=== PATIENT | female | born 1980 | race Caucasian/White ===

== ENCOUNTER 2016-10-18 11:52 | Emergency (ER) | payer OTHER ==
[~2016-10-18] VITALS: Ht 154.9 cm; Wt 54.6 kg
[~2016-10-18 11:52] MED LIST: ACET-1256 PO; CRFL PO; HYDR-3126 PO; LORA-741 PO; PANT40TA PO; PROM25TA9 PO
[2016-10-18 11:57] VITALS: TEMP 37; Ht 154.9 cm; Wt 54.6 kg
[2016-10-18] MEDS ORDERED: FERR1TAB13 PO (12:20)
[2016-10-18] MEDS ORDERED: ONDANSETRON INJ 2 MG/ML 2 ML VIAL IV STA (12:39)
[2016-10-18] MEDS ORDERED: SODIUM CHLORIDE 0.9% 1000ML 1,000 ML IV ONE (12:45)
[2016-10-18] MEDS ORDERED: HYDROmorphone INJ 0.5 MG/0.5 ML SYR IV PRN (12:45)
--- NOTE | 2016-10-18 12:56 | EMERGENCY ROOM VISIT NOTE ---
History Report prepared by Peter: Dylan Briggs Under the Supervision of: Dr. Andi Mitchell M.D. First contact with patient: 12:34 Chief Complaint: URINARY SYMPTOMS Stated Complaint: UTI,ABDOMINAL PAIN,NAUSE Nursing Triage Summary: Pt presents with concerns for UTI. Reports pelvic pain and upper abd pain. Pt states, "I have to poop to push. I've had gastric bypass in the past. I constantly feel like I have to pee. I am taking Uristat. I have a fishy smell and I haven't been sexually active in almost two years. I have pain in my back. " Pt also reports itchy rash to right upper arm. History of Present Illness The patient is a 36 year old female who presents to the Emergency Room with complaints of persistent urinary symptoms that started a few days ago. She says she has had difficulty urinating, and she has a pain in her upper abdomen that is radiating to her back around both her kidneys. She states that she recently started taking Miralax. The patient also complains of chills, fatigue, dehydration, nausea, and pelvic pain. The patient notes that there is a fishy smell coming from her vagina, but she says that she has not been sexually active in 2 years. The patient got and has been taking UTI Uristat for the pain the last few days. The patient did not take her nausea medication this morning because she has had problems holding food down. She additionally complains of an itchy rash on her right upper arm as well as on her left elbow. The patient says that she had a rash like this a year ago, and was told it was a bug bite. The patient has hypoglycemia. The patient had gastric bypass surgery 5 years ago , and lost half her weight. She is seeing a weight business management professor in 2 days. The patient was told that she may need to have a PICC line placed in her due to not getting enough nutrients. Source of History: patient Onset: A few days ago Position: other (global - urinary symptoms) Quality: other (difficulty urinating) Timing: other (persistent) Associated Symptoms: + abdominal pain, + back pain, + fatigue, + nausea, + rash, + vomiting Note: Associated symptoms: Dehydration, pelvic pain, fishy smell coming from vagina. Review of Systems All systems have been listed, reviewed, and are negative other than those previously mentioned. Please see Additional Medical History Sheet. Past Medical & Surgical Medical Problems: (1) Abdominal pain (2) (3) ADHD (attention deficit hyperactivity disorder) (4) Anxiety (5) Bipolar disorder (6) Deep vein blood clot of left lower extremity (7) Depression (8) Fibromyalgia (9) Gastritis (10) PTSD (post-traumatic stress disorder) Surgical Problems: (1) H/O gastric bypass (2) Hx of cholecystectomy (3) Hx of tonsillectomy Family History Patient reports no known family medical history. Social History Smoking Status: Never Smoker Alcohol Use: none Drug Use: none Marital Status: single, in relationship Housing Status: lives with significant other Occupation Status: unemployed Current/Historical Medications Scheduled Ferrous Sulfate ( Ferrous Sulfate), 1 TAB PO DAILY Ondasetron Odt (Zofran Odt), 4 MG SL Q4 Pantoprazole (Protonix), 40 MG PO BID Scheduled PRN Acetaminophen (Tylenol), 1,000 MG PO DIRECTED PRN for Pain Promethazine Hcl (Phenergan), 25 MG PO Q6H PRN for Nausea Allergies Coded Allergies: Morphine (Verified Allergy, Severe, SHORTNESS OF BREATH, 09/07/15) Hydroxyzine (Verified Allergy, Intermediate, Shortness of breath, chest pain, headache, 09/08/15) Amphetamine (Verified Allergy, Unknown, UNKNOWN, 09/18/15) Dextroamphetamine (Verified Allergy, Unknown, UNKNOWN, 09/18/15) NSAIDs (Verified Allergy, Unknown, CONTRINDICATED HX; GASTIRC BYPASS, ) Prochlorperazine (Verified Allergy, Unknown, rapid heart rate, 09/07/15) Aspirin (Verified Adverse Reaction, Severe, GI BLEED, 09/07/15) Physical Exam Vital Signs Date Time Temp Pulse Resp B/P Pulse Ox O2 Delivery O2 Flow Rate FiO2 10/18/16 14:31 80 12 113/79 99 Room Air 10/18/16 13:25 76 10/18/16 12:58 96 Room Air 10/18/16 12:57 82 16 115/88 96 Room Air 10/18/16 11:57 37.0 108 18 131/91 97 Room Air Physical Exam GENERAL: Patient awake, alert, oriented x 3. Patient follows commands. Patient does not appear toxic. Patient is adequately hydrated and well- nourished. SKIN: No erythema, pallor, cyanosis or rash HEENT: Normal head, pupils equal, reactive to light and accommodation. Oral cavity and posterior pharynx appear normal. Neck: Without adenopathy, no neck vein distention. LUNGS: Clear to auscultation. No wheezes, no rales, no rhonchi. HEART: No murmurs. No gallops. No rubs ABDOMEN: Small subumbilical scar. Generalized abdominal pain more-so below the umbilicus. Vague CVA tenderness bilaterally. EXTREMITIES: No signs of trauma. No pedal or pretibial edema. No calf or thigh tenderness. SKIN: Appears to have small erythematous macular rash on right posterior upper arm. Also has one on left elbow. NEUROLOGIC: Cranial nerves II-XII within normal limits. No gross motor sensory function deficits. Medical Decision & Procedures Laboratory Results 10/18/16 12:50 Red Blood Count 4.42, Mean Corpuscular Volume 93.4, Mean Corpuscular Hemoglobin 30.3, Mean Corpuscular Hemoglobin Concent 32.4, Mean Platelet Volume 9.7, Neutrophils (%) (Auto) 53.0, Lymphocytes (%) (Auto) 34.6, Monocytes (%) (Auto) 11.8, Eosinophils (%) (Auto) 0.3, Basophils (%) (Auto) 0.3, Neutrophils # (Auto ) 2.02, Lymphocytes # (Auto) 1.32, Monocytes # (Auto) 0.45, Eosinophils # (Auto ) 0.01, Basophils # (Auto) 0.01 10/18/16 12:50 Test 10/18/16 12:14 10/18/16 12:50 Urine Color ORANGE Urine Appearance CLEAR (CLEAR) Urine pH (4.5-7.5) Urine Specific Garber (1.000-1.030) Urine Protein NEG (NEG) Urine Glucose (UA) (NEG) Urine Ketones (NEG) Urine Occult Blood (NEG) Urine Nitrite (NEG) Urine Bilirubin (NEG) Urine Urobilinogen (NEG) Urine Leukocyte Esterase (NEG) Urine RBC 0-4 /hpf (0-4) Urine WBC 1-5 /hpf (0-5) Urine Epithelial Cells 20-30 /lpf (0-5) Urine Bacteria 1+ (NEG) Urine Test NEG (NEG) White Blood Count 3.81 K/uL (4.8-10.8) Red Blood Count 4.42 M/uL (4.2-5.4) Hemoglobin 13.4 g/dL (12.0-16.0) Hematocrit 41.3 % (37-47) Mean Corpuscular Volume 93.4 fL (80-100) Mean Corpuscular Hemoglobin 30.3 pg (25-34) Mean Corpuscular Hemoglobin Concent 32.4 g/dl (32-36) Platelet Count 293 K/uL (130-400) Mean Platelet Volume 9.7 fL (7.4-10.4) Neutrophils (%) (Auto) 53.0 % Lymphocytes (%) (Auto) 34.6 % Monocytes (%) (Auto) 11.8 % Eosinophils (%) (Auto) 0.3 % Basophils (%) (Auto) 0.3 % Neutrophils # (Auto) 2.02 K/uL (1.4-6.5) Lymphocytes # (Auto) 1.32 K/uL (1.2-3.4) Monocytes # (Auto) 0.45 K/uL (0.11-0.59) Eosinophils # (Auto) 0.01 K/uL (0-0.5) Basophils # (Auto) 0.01 K/uL (0-0.2) RDW Standard Deviation 44.3 fL (36.4-46.3) RDW Coefficient of Variation 13.0 % (11.5-14.5) Immature Granulocyte % (Auto) 0.0 % Immature Granulocyte # (Auto) 0.00 K/uL (0.00-0.02) Anion Gap 3.0 mmol/L (3-11) Est Creatinine Clear Calc Drug Dose 73.1 ml/min Estimated GFR () 109.1 Estimated GFR (Non- 94.1 BUN/Creatinine Ratio 16.5 (10-20) Calcium Level 9.2 mg/dl (8.5-10.1) Total Bilirubin 0.3 mg/dl (0.2-1) Aspartate Amino Transf (AST/SGOT) 16 U/L (15-37) Alanine Aminotransferase (ALT/SGPT) 30 U/L (12-78) Alkaline Phosphatase 90 U/L (45-117) Total Protein 8.5 gm/dl (6.4-8.2) Albumin 4.5 gm/dl (3.4-5.0) Globulin 4.0 gm/dl (2.5-4.0) Albumin/Globulin Ratio 1.1 (0.9-2) Laboratory results as stated above per my review. Medications Administered Medications (Trade) Dose Ordered Sig/Kin Route Start Time Stop Time Status Last Admin Dose Admin Sodium Chloride (Nss 1000ml) 1,000 ml @ 1,000 mls/hr Q1H ONCE IV 10/18/16 12:45 10/18/16 13:44 DC 10/18/16 12:53 1,000 MLS/HR Ondansetron HCl (Zofran Inj) 4 mg NOW STAT IV 10/18/16 12:39 10/18/16 12:42 DC 10/18/16 12:53 4 MG Hydromorphone HCl (Dilaudid Inj) 0.5 mg PRN PRN IV 10/18/16 12:45 11/01/16 12:44 10/18/16 12:53 0.5 MG ED Course 1233: Past medical records reviewed. The patient was evaluated in room C11B. A complete history and physical examination was performed. 1239: Ordered Zofran Inj 4 mg IV. 1245: Ordered Dilaudid Inj 0.5 mg IV PRN, NSS 1000 ml @ 1000 mls/hr IV. 1457: Upon reevaluation, the patient appeared to have improvement of her symptoms. I discussed today's findings with her. She verbalized agreement of the treatment plan. She will be discharged home. 1510: Ordered Ultram Tab 50 mg PO. Medical Decision Nurses notes reviewed. Medical history sheet reviewed. Differential diagnosis includes but is not limited to: UTI, pyelonephritis, dehydration, bug bites. Multiple labs and urinalysis were obtained. Please see above. The patient does not have an acute abdomen. White count is not elevated. She does not appear to have a urinary tract infection. The patient was given pain medication and IV fluids. Patient did improve but she continues to complain of her chronic abdominal pain. I'm reluctant to give her outpatient pain meds. She was given a prescription for Zofran. The patient was strongly encouraged to follow-up with her family physician and reviewer sales. The patient also has what appear to be insect bites on both arms. Impression Primary Impression: Chronic abdominal pain Additional Impressions: History of gastric bypass Insect bites Scribe Attestation The scribe's documentation has been prepared under my direction and personally reviewed by me in its entirety. I confirm that the note above accurately reflects all work, treatment, procedures, and medical decision making performed by me. Departure Information Dispostion Home / Self-Care Prescriptions Ondasetron Odt (ZOFRAN ODT) 4 Mg Tab 4 MG SL Q4, #20 TAB Prov: Andi Mitchell M.D. 10/18/16 Referrals Dewey Costa PA-C (PCP) Patient Instructions My [facility] Additional Instructions 1 Zofran every 4 hours as needed for nausea. Continue all of your current medications as prescribed. Follow-up with your reviewer sales and family physician as soon as possible. Problem Qualifiers
[2016-10-18 12:58] VITALS: O2SAT 96
[2016-10-18 13:03] LABS: MANUAL MICROSCOPIC REQUIRED? YES; REVIEW REQ? NO; SULFASALICYLIC ACID NEG (NEG)
[2016-10-18 13:04] LABS: URINE APPEARANCE CLEAR (CLEAR); URINE COLOR ORANGE
[2016-10-18 13:05] LABS: BASO % 0.3 %; BASO ABS # 0.01 K/uL (0-0.2); COMPLETE YES; EOS % 0.3 %; HEMATOCRIT 41.3 % (37-47); LYMPH % 34.6 %; LYMPH ABS # 1.32 K/uL (1.2-3.4); MEAN CELL VOLUME 93.4 fL (80-100); MEAN CORPUSCULAR HEMOGLOBIN 30.3 pg (25-34); MEAN CORPUSCULAR HGB CONC 32.4 g/dl (32-36); MEAN PLATELET VOLUME 9.7 fL (7.4-10.4); MONO % 11.8 %; PLATELET COUNT 293 K/uL (130-400); RED BLOOD COUNT 4.42 M/uL (4.2-5.4); WHITE BLOOD COUNT 3.81 K/uL (4.8-10.8)
[2016-10-18 13:07] LABS: URINE BACTERIA 1+ (NEG); URINE RBC 0-4 /hpf (0-4); ZZUR CULT IF INDIC CLEAN CATCH YES
[2016-10-18 13:27] LABS: BUN/CREATININE RATIO 16.5 (10-20); CALCIUM 9.2 mg/dl (8.5-10.1); CREATININE 0.81 mg/dl (0.60-1.20); POTASSIUM 3.7 mmol/L (3.5-5.1)
[2016-10-18 13:30] LABS: ALB/GLOB RATIO 1.1 (0.9-2)
[2016-10-18] MEDS ORDERED: TRAMADOL HCL 50 MG TAB PO STA (15:10)
[2016-10-18] MEDS ORDERED: ONDA4TAB10 SL (15:15)
[2016-10-18 16:33] VITALS: BP 101/81; PULSE 91; O2SAT 97
== END 2016-10-18 16:34 | disposition home or self-care (01) ==
LOC: C.EDB 11:53 → C.EDC 16:34
DX: R10.9 Unspecified abdominal pain (principal); G89.29 Other chronic pain; Z98.84 Bariatric surgery status; W57.XXXA Bitten or stung by nonvenomous insect and other nonvenomous arthropods, initial encounter; F31.9 Bipolar disorder, unspecified; F41.9 Anxiety disorder, unspecified; F32.9 Major depressive disorder, single episode, unspecified; K29.70 Gastritis, unspecified, without bleeding; Z87.19 Personal history of other diseases of the digestive system; Z90.49 Acquired absence of other specified parts of digestive tract; Z79.899 Other long term (current) drug therapy; Z88.5 Allergy status to narcotic agent; Z88.6 Allergy status to analgesic agent; Z88.8 Allergy status to other drugs, medicaments and biological substances

== ENCOUNTER 2016-11-22 06:38 | Emergency (ER) | payer OTHER ==
[~2016-11-22] VITALS: Ht 154.9 cm; Wt 55.4 kg
[~2016-11-22 06:38] MED LIST changes: -CRFL PO; +FERR1TAB13 PO; -HYDR-3126 PO; -LORA-741 PO; +ONDA4TAB10 SL
[2016-11-22 06:46] VITALS: TEMP 36.5; Ht 154.9 cm; Wt 55.4 kg
[2016-11-22] MEDS ORDERED: FAMOTIDINE IV INJ 20 MG in DEXTROSE 5% 100ML 100 ML IV STA (07:08)
[2016-11-22] MEDS ORDERED: ONDANSETRON INJ 2 MG/ML 2 ML VIAL IV STA (07:08)
[2016-11-22] MEDS ORDERED: SODIUM CHLORIDE 0.9% 1000ML 1,000 ML IV STA (07:08)
[2016-11-22 07:17] LABS: BASO % 0.3 %; BASO ABS # 0.01 K/uL (0-0.2); COMPLETE YES; EOS % 0.3 %; HEMATOCRIT 41.2 % (37-47); LYMPH % 46.8 %; LYMPH ABS # 1.52 K/uL (1.2-3.4); MEAN CELL VOLUME 93.8 fL (80-100); MEAN CORPUSCULAR HEMOGLOBIN 28.5 pg (25-34); MEAN CORPUSCULAR HGB CONC 30.3 g/dl (32-36); MEAN PLATELET VOLUME 9.5 fL (7.4-10.4); MONO % 10.2 %; NEUT % 42.4 %; PLATELET COUNT 233 K/uL (130-400); RED BLOOD COUNT 4.39 M/uL (4.2-5.4); WHITE BLOOD COUNT 3.25 K/uL (4.8-10.8)
[2016-11-22] MEDS ORDERED: OXYC-57 PO (07:28)
[2016-11-22] MEDS ORDERED: MRLP527 PO (07:28)
[2016-11-22] MEDS ORDERED: AMIT10TA6 PO (07:28)
[2016-11-22] MEDS ORDERED: GI COCKTAIL PO STA (07:30)
--- NOTE | 2016-11-22 07:30 | EMERGENCY ROOM VISIT NOTE ---
History Report prepared by Rojelioibpaulette: Cody Anuglo Under the Supervision of: Dr. John Stauffer D.O. First contact with patient: 06:48 Chief Complaint: ABDOMINAL PAIN Stated Complaint: STOMACH ULCER History of Present Illness The patient is a 36 year old female who presents to the Emergency Room with complaints of intermittent abdominal pain for the past four months. The pain is mostly present after she eats. The quality and location of the pain have not changed over the past four months. She has also been experiencing nausea and vomiting for the past four days. She feels dehydrated and dizzy because she cannot keep food or fluids down. The patient also complains of chills. She had a bout of diarrhea last night. The patient had an endoscopy two weeks ago and was diagnosed with an ulcer. She is scheduled to have a reverse gastric bypass next week. She is s/p cholecystectomy. She still has her appendix. Patient denies headache, change in vision, fevers, chest pain, shortness of breath, pain with urination, and melena. Source of History: patient Onset: four months ago Position: abdomen Timing: intermittent Modifying Factors (Worsening): eating Associated Symptoms: + chills, + diarrhea, + nausea, + vomiting, No SOB, No chest pain, No fevers, No headache, No melena, No urinary symptoms Review of Systems See HPI for pertinent positives & negatives. A total of 10 systems reviewed and were otherwise negative. Past Medical & Surgical Medical Problems: (1) Abdominal pain (2) (3) ADHD (attention deficit hyperactivity disorder) (4) Anxiety (5) Bipolar disorder (6) Deep vein blood clot of left lower extremity (7) Depression (8) Fibromyalgia (9) Gastritis (10) PTSD (post-traumatic stress disorder) Surgical Problems: (1) H/O gastric bypass (2) Hx of cholecystectomy (3) Hx of tonsillectomy Family History Patient reports no known family medical history. Social History Smoking Status: Never Smoker Alcohol Use: none Drug Use: none Marital Status: single, in relationship Housing Status: lives with significant other Occupation Status: unemployed Current/Historical Medications Scheduled Amitriptyline Hcl (Elavil), 5 MG PO HS Ferrous Sulfate (Kp Ferrous Sulfate), 1 TAB PO DAILY Ondasetron Odt (Zofran Odt), 4 MG SL Q4 Pantoprazole (Protonix), 40 MG PO BID Polyethylene (Polyethylene Glycol 3350), 1 DOSE PO TID Scheduled PRN Acetaminophen (Tylenol), 1,000 MG PO DIRECTED PRN for Pain Oxycodone/Acetaminophen 5MG/325MG (Percocet 5MG/325MG), 1 TABLET PO Q4H PRN for Pain Allergies Coded Allergies: Morphine (Verified Allergy, Severe, SHORTNESS OF BREATH, 11/22/16) Hydroxyzine (Verified Allergy, Intermediate, Shortness of breath, chest pain, headache, 11/22/16) Amphetamine (Verified Allergy, Unknown, UNKNOWN, 11/22/16) Dextroamphetamine (Verified Allergy, Unknown, UNKNOWN, 11/22/16) NSAIDs (Verified Allergy, Unknown, CONTRINDICATED HX; GASTIRC BYPASS, 11/22) Prochlorperazine (Verified Allergy, Unknown, rapid heart rate, 11/22/16) Aspirin (Verified Adverse Reaction, Severe, GI BLEED, 11/22/16) Acetaminophen (Unverified Adverse Reaction, Unknown, GI ISSUES, 11/22/16) Physical Exam Vital Signs Date Time Temp Pulse Resp B/P Pulse Ox O2 Delivery O2 Flow Rate FiO2 11/22/16 07:51 89 119/89 100 11/22/16 06:46 36.5 100 18 110/62 97 Room Air Physical Exam GENERAL: Sitting up in bed alert, well appearing, well nourished, no distress, non-toxic EYE EXAM: normal conjunctiva. OROPHARYNX: no exudate, no erythema, lips, buccal mucosa, and tongue normal and mucous membranes are moist NECK: supple, no nuchal rigidity, no adenopathy, non-tender LUNGS: Clear to auscultation. Normal chest wall mechanics HEART: no murmurs, S1 normal and S2 normal ABDOMEN: abdomen soft, minimal tenderness when distracted around the periumbilical / epigastric region, normo-active bowel sounds, no masses, no rebound or guarding, multiple old abdominal incisions. BACK: Back is symmetrical on inspection and there is no deformity, no midline tenderness, no CVA tenderness. SKIN: no rashes and no bruising UPPER EXTREMITIES: upper extremities are grossly normal. LOWER EXTREMITIES: No pitting edema. NEURO EXAM: Normal sensorium, cranial nerves II-XII grossly intact, normal speech, no gross weakness of arms, no gross weakness of legs. Gross sensation intact. Medical Decision & Procedures Laboratory Results 11/22/16 07:02 Red Blood Count 4.39, Mean Corpuscular Volume 93.8, Mean Corpuscular Hemoglobin 28.5, Mean Corpuscular Hemoglobin Concent 30.3, Mean Platelet Volume 9.5, Neutrophils (%) (Auto) 42.4, Lymphocytes (%) (Auto) 46.8, Monocytes (%) (Auto) 10.2, Eosinophils (%) (Auto) 0.3, Basophils (%) (Auto) 0.3, Neutrophils # (Auto ) 1.38, Lymphocytes # (Auto) 1.52, Monocytes # (Auto) 0.33, Eosinophils # (Auto ) 0.01, Basophils # (Auto) 0.01 11/22/16 07:02 Test 11/22/16 07:02 11/22/16 07:25 White Blood Count 3.25 K/uL (4.8-10.8) Red Blood Count 4.39 M/uL (4.2-5.4) Hemoglobin 12.5 g/dL (12.0-16.0) Hematocrit 41.2 % (37-47) Mean Corpuscular Volume 93.8 fL (80-100) Mean Corpuscular Hemoglobin 28.5 pg (25-34) Mean Corpuscular Hemoglobin Concent 30.3 g/dl (32-36) Platelet Count 233 K/uL (130-400) Mean Platelet Volume 9.5 fL (7.4-10.4) Neutrophils (%) (Auto) 42.4 % Lymphocytes (%) (Auto) 46.8 % Monocytes (%) (Auto) 10.2 % Eosinophils (%) (Auto) 0.3 % Basophils (%) (Auto) 0.3 % Neutrophils # (Auto) 1.38 K/uL (1.4-6.5) Lymphocytes # (Auto) 1.52 K/uL (1.2-3.4) Monocytes # (Auto) 0.33 K/uL (0.11-0.59) Eosinophils # (Auto) 0.01 K/uL (0-0.5) Basophils # (Auto) 0.01 K/uL (0-0.2) RDW Standard Deviation 47.3 fL (36.4-46.3) RDW Coefficient of Variation 13.7 % (11.5-14.5) Immature Granulocyte % (Auto) 0.0 % Immature Granulocyte # (Auto) 0.00 K/uL (0.00-0.02) Anion Gap 4.0 mmol/L (3-11) Est Creatinine Clear Calc Drug Dose 63.7 ml/min Estimated GFR () 92.3 Estimated GFR (Non- 79.6 BUN/Creatinine Ratio 11.5 (10-20) Calcium Level 8.8 mg/dl (8.5-10.1) Total Bilirubin 0.3 mg/dl (0.2-1) Direct Bilirubin < 0.1 mg/dl (0-0.2) Aspartate Amino Transf (AST/SGOT) 21 U/L (15-37) Alanine Aminotransferase (ALT/SGPT) 26 U/L (12-78) Alkaline Phosphatase 71 U/L (45-117) Total Protein 7.7 gm/dl (6.4-8.2) Albumin 4.2 gm/dl (3.4-5.0) Lipase 107 U/L (73-393) Urine Color YELLOW Urine Appearance CLEAR (CLEAR) Urine pH 6.0 (4.5-7.5) Urine Specific Marty 1.018 (1.000-1.030) Urine Protein NEG (NEG) Urine Glucose (UA) NEG (NEG) Urine Ketones NEG (NEG) Urine Occult Blood 2+ (NEG) Urine Nitrite NEG (NEG) Urine Bilirubin NEG (NEG) Urine Urobilinogen NEG (NEG) Urine Leukocyte Esterase NEG (NEG) Urine WBC (Auto) 1-5 /hpf (0-5) Urine RBC (Auto) 5-10 /hpf (0-4) Urine Hyaline Casts (Auto) 1-5 /lpf (0-5) Urine Epithelial Cells (Auto) >30 /lpf (0-5) Urine Bacteria (Auto) 2+ (NEG) Urine Yeast (Auto) (NONE PRSENT) Urine Test NEG (NEG) Laboratory results per my review. Medications Administered Medications (Trade) Dose Ordered Sig/Kin Route Start Time Stop Time Status Last Admin Dose Admin Sodium Chloride (Nss 1000ml) 1,000 ml @ 999 mls/hr Q1H1M STAT IV 11/22/16 07:08 11/22/16 08:08 DC 11/22/16 07:23 999 MLS/HR Ondansetron HCl 4 mg 4 mg NOW STAT IV 11/22/16 07:08 11/22/16 07:10 DC 11/22/16 07:23 4 MG Famotidine/ Dextrose (Pepcid IV Inj/ D5 100ml) 102 ml @ 200 mls/hr NOW STAT IV 11/22/16 07:08 11/22/16 07:38 DC 11/22/16 07:29 200 MLS/HR Al Hydroxide/Mg Hydroxide (Maalox Susp) 30 ml STK-MED ONCE .ROUTE 11/22/16 07:33 11/22/16 07:34 DC 11/22/16 07:35 30 ML Lidocaine HCl (Viscous Lidocaine 2% Soln) 20 ml STK-MED ONCE .ROUTE 11/22/16 07:33 11/22/16 07:34 DC 11/22/16 07:35 20 ML ED Course ED COURSE: Vital signs were reviewed and showed tachycardia. The patients medical record was reviewed The above diagnostic studies were performed and reviewed. ED treatments and interventions as stated above. 0659: The patient was evaluated in room B3b. A complete history and physical examination was performed. 0708: Ordered Famotidine 20 mg / dextrose 102 ml @ 200 mls/hr IV, Zofran 4 mg IV , NSS 1000 ml @ 999 mls/hr. 0710: The patient is texting on phone, well appearing. She admits that she was in [place] earlier this morning. 0715: Records from [facility] reviewed. The patient was there this morning. She left because she did not receive Dilaudid, per physician's note. 0730: Ordered GI Cocktail 24 ml PO. 0742: Nursing staff noted no vomiting while she has been here. She does not want any additional medications or workup as she is not being given narcotics. She would not like to wait to see if a GI cocktail works before being given narcotics despite the pain being consistent with her ulcer. The patient now states that she has a ride to [place]. 0750: The patient has elected to leave [place]. She asked for cookies and dionne pat before leaving. 0800: Spoke with the on-call surgeon at [facility], who knows the patient well. The patient has exhibited and continues to exhibit drug seeking behavior. She does have a surgery scheduled on . Agrees with no narcotics as the patient received 80 pills recently. Medical Decision Differential diagnoses includes but is not limited to gastritis, peptic ulcer disease, GERD, gallbladder disease, pancreatitis, small bowel obstruction, acute coronary syndrome, pericarditis, ischemic bowel, irritable bowel disease, irritable bowel syndrome, appendicitis, diverticulitis, malignancy, hernia, urinary tract infection, torsion, /ectopic (if female), perforation, trauma, infectious. Patient is a 36-year-old female with a previous gastric bypass that presents the ER for abdominal pain. She notes that she follows with [facility] where she had her bypass performed. She has been having the same epigastric abdominal pain associated with nausea/vomiting for the past 4 months. She states that she is scheduled to have a reversal of her bypass next week. She presents today because she was unable to get a ride to [place]. Upon review of her previous chart which she gave permission, Joie she just left there this morning as she did not receive Dilaudid and drove to [facility]. Upon review of her previous chart here there does appear to be drug seeking behavior. On my exam she does have minimal tenderness in the epigastric region and consequently I recommended blood work and a CT. CBC along with BMP shows a mild hypokalemia of 3.2. Bilirubin along with LFTs and lipase is normal. UA resulted following her leaving AMA but had epithelial cells suggesting contaminant. was negative. I gave the patient famotidine and a GI cocktail. After receiving the GI cocktail she continued to ask for narcotics. I explained we need to give GI cocktail time to work as she notes this is consistent with her previous gastric ulcer. Patient this time called me back and the room and requested to be discharged as she did not receive narcotics. She was discharged following informed refusal of care. She is awake and coherent and able to understand the risk and benefits. Following being discharged she requested that the nurse give her dionne pat and crackers as she was hungry which was not consistent with her history. Her surgeon from [facility] eventually called back and notes that she has exhibited drug-seeking behavior in the past and continues to exhibit this. He notes that she has multiple narcotic scripts and will follow-up with her on prior to her surgery. The patient requested to leave. I considered this to be leaving against medical advice. I personally discussed the following with them. They currently had a medical condition of: Abdominal pain and I am concerned that they have obstruction or other serious pathology ischemia or infection even despite unremarkable labs. My proposed course of evaluation and treatment and that of any consultants is: CT of the abdomen/pelvis. Benefits would include: possible diagnosis or excluding of ischemia, infection or an alternative serious condition such as obstruction, which if identified early would lead to appropriate intervention in a timely manner lessing the burden of disability and . Risks of leaving before this had been completed include: misdiagnosis, worsening illness leading up to and including prolonged or permanent disability or . Specific risks pertinent, but not all inclusive, of their current medical condition include but are not limited to: and disability. Despite this they stated they wanted to leave due to not receiving IV narcotics immediately and refused further evaluation, treatment, or admission at this time. They appear clinically sober, to be mentating appropriately, free from distracting injury, have controlled pain, appear to have intact insight, judgment, and reason and in my opinion have the capacity to make this decision. Specifically, they were able to verbally state back in a coherent manner their current medical condition /current diagnosis, the proposes course of treatment, and the risks, benefits, and alternatives of treatment versus leaving against medical advice. They understand that they may return to seek medical attention here at whatever time they want. I highly advised them to return to the Emergency Department immediately if they experienced any: Continuation of the pain, worsening pain, reconsidered treatment a/o admission, or had any other concerns. This would be without any repercussions. I recommended they follow-up with general surgery within 24 hours for further evaluation and treatment. They were discharged against medical advice [place] Drug Monitoring Program Search Results: patient reviewed within database Impression Primary Impression: Abdominal pain Additional Impressions: Hypokalemia Drug-seeking behavior Scribe Attestation The scribe's documentation has been prepared under my direction and personally reviewed by me in its entirety. I confirm that the note above accurately reflects all work, treatment, procedures, and medical decision making performed by me. Departure Information Dispostion Home / Self-Care Referrals Dewey Costa PA-C (PCP) Forms Call Back Authorization, HOME CARE DOCUMENTATION FORM, IMPORTANT VISIT INFORMATION Patient Instructions Abdominal Pain - [facility], [facility] Additional Instructions Please follow up with your primary care doctor with in the next 24 hours. Any worsening of your symptoms, please return to the ED immediately. This includes fevers greater than 100.4, worsening pain, vomiting blood, bloody stool, passing out, or any other concerning signs or symptoms from your standpoint. Please follow up with your surgeon. Problem Qualifiers Primary Impression: Abdominal pain Abdominal location: epigastric Qualified Codes: R10.13 - Epigastric pain
[2016-11-22] MEDS ORDERED: ALUMINUM/MAGNESIUM SUSP 30 ML UDC ONE (07:33)
[2016-11-22] MEDS ORDERED: LIDOCAINE HCL 2% VISC SOLN 20 ML UDC ONE (07:33)
[2016-11-22 07:40] LABS: ALT/SGPT 26 U/L (12-78); AST/SGOT 21 U/L (15-37); BLOOD UREA NITROGEN 11 mg/dl (7-18); BUN/CREATININE RATIO 11.5 (10-20); CALCIUM 8.8 mg/dl (8.5-10.1); CARBON DIOXIDE 33 mmol/L (21-32); CHLORIDE 106 mmol/L (98-107); CREATININE 0.93 mg/dl (0.60-1.20); GLUCOSE 64 mg/dl (70-99); POTASSIUM 3.2 mmol/L (3.5-5.1); SODIUM 143 mmol/L (136-145)
[2016-11-22 07:42] LABS: ALKALINE PHOSPHATASE 71 U/L (45-117)
[2016-11-22] MEDS ORDERED: OPTIRAY 320 IV PRN (07:45)
[2016-11-22 07:46] LABS: URINE APPEARANCE CLEAR (CLEAR); URINE BILIRUBIN NEG (NEG); URINE COLOR YELLOW; URINE EPITHELIAL CELL AUTO >30 /lpf (0-5); URINE NITRITE NEG (NEG); URINE SPECIFIC GRAVITY 1.018 (1.000-1.030); UROBILINOGEN NEG (NEG); ZZUR CULT IF INDIC CLEAN CATCH YES
[2016-11-22 07:51] VITALS: BP 119/89; PULSE 89; O2SAT 100
[2016-11-22 08:11] LABS: MANUAL MICROSCOPIC REQUIRED? NO; REVIEW REQ? YES
== END 2016-11-22 07:56 | disposition home or self-care (01) ==
LOC: C.EDB 06:39
DX: R10.13 Epigastric pain (principal); E87.6 Hypokalemia; Z76.5 Malingerer [conscious simulation]; R11.2 Nausea with vomiting, unspecified; R42 Dizziness and giddiness; F32.9 Major depressive disorder, single episode, unspecified; R19.7 Diarrhea, unspecified; Z86.718 Personal history of other venous thrombosis and embolism; Z87.59 Personal history of other complications of pregnancy, childbirth and the puerperium; Z90.49 Acquired absence of other specified parts of digestive tract; Z98.84 Bariatric surgery status; Z90.89 Acquired absence of other organs; Z98.890 Other specified postprocedural states; Z79.899 Other long term (current) drug therapy

== ENCOUNTER 2016-12-12 09:04 | Emergency (ER) | payer OTHER ==
[~2016-12-12] VITALS: Ht 154.9 cm; Wt 52.1 kg
[~2016-12-12 09:04] MED LIST changes: +AMIT10TA6 PO; +MRLP527 PO; +OXYC-57 PO; -PROM25TA9 PO
[2016-12-12 09:08] VITALS: TEMP 36.7; Ht 154.9 cm; Wt 52.1 kg
[2016-12-12] MEDS ORDERED: GI COCKTAIL PO STA (09:25)
[2016-12-12] MEDS ORDERED: SODIUM CHLORIDE 0.9% 1000ML 1,000 ML IV STA (09:25)
[2016-12-12] MEDS ORDERED: ONDANSETRON INJ 2 MG/ML 2 ML VIAL IV STA (09:25)
[2016-12-12] MEDS ORDERED: ALUMINUM/MAGNESIUM SUSP 30 ML UDC ONE (09:30)
[2016-12-12] MEDS ORDERED: OPTIRAY 320 IV PRN (09:30)
[2016-12-12] MEDS ORDERED: LIDOCAINE HCL 2% VISC SOLN 20 ML UDC ONE (09:30)
[2016-12-12 10:22] LABS: BASO % 0.8 %; BASO ABS # 0.03 K/uL (0-0.2); COMPLETE YES; EOS % 2.1 %; HEMATOCRIT 39.9 % (37-47); LYMPH % 34.7 %; LYMPH ABS # 1.32 K/uL (1.2-3.4); MEAN CELL VOLUME 90.7 fL (80-100); MEAN CORPUSCULAR HEMOGLOBIN 28.4 pg (25-34); MEAN CORPUSCULAR HGB CONC 31.3 g/dl (32-36); MEAN PLATELET VOLUME 8.5 fL (7.4-10.4); MONO % 5.3 %; NEUT % 57.1 %; PLATELET COUNT 474 K/uL (130-400)
[2016-12-12 10:31] LABS: URINE APPEARANCE CLEAR (CLEAR); URINE BILIRUBIN NEG (NEG); URINE COLOR YELLOW; URINE NITRITE NEG (NEG); URINE PH 8.5 (4.5-7.5); URINE SPECIFIC GRAVITY 1.014 (1.000-1.030); UROBILINOGEN NEG (NEG); ZZUR CULT IF INDIC CLEAN CATCH NO
[2016-12-12 10:37] LABS: MANUAL MICROSCOPIC REQUIRED? NO; REVIEW REQ? NO
[2016-12-12 10:41] LABS: CALCIUM 9.5 mg/dl (8.5-10.1)
[2016-12-12 10:42] LABS: ALT/SGPT 20 U/L (12-78); BLOOD UREA NITROGEN 16 mg/dl (7-18); BUN/CREATININE RATIO 21.7 (10-20); CARBON DIOXIDE 29 mmol/L (21-32); CHLORIDE 101 mmol/L (98-107); CREATININE 0.72 mg/dl (0.60-1.20); GLUCOSE 82 mg/dl (70-99); POTASSIUM 3.9 mmol/L (3.5-5.1); SODIUM 138 mmol/L (136-145)
[2016-12-12 10:45] LABS: ALKALINE PHOSPHATASE 91 U/L (45-117); AST/SGOT 12 U/L (15-37)
--- NOTE | 2016-12-12 11:50 | DIAGNOSTIC IMAGING REPORT ---
CT ABD/PELVIS IV AND ORAL CONT CLINICAL HISTORY: Epigastric abdominal pain. History of gastric bypass revision. COMPARISON STUDY: 09/07/2015 TECHNIQUE: Following the IV administration of 93 mL of Optiray-320, CT scan of the abdomen and pelvis was performed from the lung bases to the proximal femurs. Images are reviewed in the axial, sagittal, and coronal planes. IV contrast was administered without complication. CT DOSE: 291.55 mGy.cm FINDINGS: Lower chest: The heart is normal in size and configuration, without pericardial effusion. The lung bases and pleural spaces are clear. Liver: There is borderline hepatic steatosis. No focal masses are visualized. There is minimal central ductal prominence similar to the prior study. Gallbladder: Surgically absent Spleen: Normal in size and attenuation. Pancreas: No pancreatic masses are visualized. There is mild dilatation of the pancreatic duct within the head of pancreas. The duct measures 4.3 mm. This remains similar to the preceding study. Adrenal glands: Unremarkable. Kidneys: There are small nonobstructing bilateral renal calculi. No solid renal masses are visualized. There is no hydronephrosis. Bowel: There are postsurgical changes of a gastric bypass and presumed Kylie-en-Y anastomosis. There are no transition zones indicate bowel obstruction. No extravasated contrast is visualized. Visualized portion of the appendix appear normal. There is no evidence of acute diverticulitis. Peritoneum: There is a small amount of free pelvic fluid. No free intraperitoneal air is visualized. Vasculature: The abdominal aorta is normal in course and caliber. Adenopathy: None. Pelvic viscera: The bladder, and pelvic viscera are unremarkable. Skeletal structures: No destructive osseous lesions are seen. IMPRESSION: 1. Postsurgical changes of a gastric bypass and Kylie-en-Y anastomosis 2. Mild pancreatic ductal dilatation, unchanged from the preceding study 3. No evidence of bowel obstruction. No evidence of free air 4. No evidence of acute appendicitis. No evidence of acute diverticulitis. 5. Small amount of free fluid in the pelvis 6. Nonobstructing bilateral renal calculi. Electronically signed by: Ayden Ramos M.D. 12/12/2016 11:49 AM Dictated Date/Time: 12/12/2016 11:41 AM
[2016-12-12] MEDS ORDERED: FAMOTIDINE IV INJ 20 MG in DEXTROSE 5% 100ML 100 ML IV SCH (12:00)
[2016-12-12 12:24] VITALS: BP 96/66; PULSE 85; O2SAT 99
--- NOTE | 2016-12-12 14:48 | EMERGENCY ROOM VISIT NOTE ---
History Report prepared by Peter: Rosalio Rhodes Under the Supervision of: Dr. John Stauffer D.O. First contact with patient: 09:11 Chief Complaint: ABDOMINAL PAIN Stated Complaint: RECENT STOMACH SURGERY,PAIN,DIARRHEA Nursing Triage Summary: Triage note: pt reports hx of gastric bypass 5 years and 2 weeks she has revision with a gastric sleeve. pt reports she was unable to go to her follow up appt today. pt reports since thursday she has had burning in throat after eating and diarrhea. pt also reports abd pain. History of Present Illness The patient is a 36 year old female who presents to the Emergency Room with complaints of "burning" abdominal pain beginning yesterday. She has a history of a gastric bypass surgery occurring 5 years ago, and had a gastric sleeve surgery two weeks ago. She states that she was scheduled to see the on-call GI surgeon today, but was unable to go. The patient states that eating any food worsens her pain. She also complains of diarrhea beginning yesterday. She states that she had a problem with her previous gastric bypass surgery requiring the second surgery. Pt denies headache, change in vision, fevers, chest pain, shortness of breath, nausea, vomiting, pain with urination, and melena. She notes that she went to the [facility] ED yesterday for her symptoms but left and was not seen due to the long wait. The patient was seen in the [facility] ED on December 02 (10 days ago) and had a CT for abdominal pain post surgery which was unremarkable. She was seen again in the [facility] ED on December 04 (8 days ago) and had a CT abdomen/pelvis with IV and PO contrast which showed improved pneumoperitoneum, small free fluid anterior to the right colon, and was otherwise unremarkable. Source of History: patient Onset: yesterday Position: abdomen Quality: burning Modifying Factors (Worsening): eating Associated Symptoms: + diarrhea, No fevers, No chest pain, No SOB, No nausea , No vomiting Review of Systems See HPI for pertinent positives & negatives. A total of 10 systems reviewed and were otherwise negative. Past Medical & Surgical Medical Problems: (1) Abdominal pain (2) (3) ADHD (attention deficit hyperactivity disorder) (4) Anxiety (5) Bipolar disorder (6) Deep vein blood clot of left lower extremity (7) Depression (8) Fibromyalgia (9) Gastritis (10) PTSD (post-traumatic stress disorder) Surgical Problems: (1) H/O gastric bypass (2) Hx of cholecystectomy (3) Hx of tonsillectomy Family History Patient reports no known family medical history. Social History Smoking Status: Never Smoker Alcohol Use: none Drug Use: none Marital Status: single, in relationship Housing Status: lives with significant other Occupation Status: unemployed Current/Historical Medications Scheduled Amitriptyline Hcl (Elavil), 5 MG PO HS Ondasetron Odt (Zofran Odt), 4 MG SL Q4 Pantoprazole (Protonix), 40 MG PO BID Allergies Coded Allergies: Morphine (Verified Allergy, Severe, SHORTNESS OF BREATH, 11/22/16) Hydroxyzine (Verified Allergy, Intermediate, Shortness of breath, chest pain, headache, 11/22/16) Amphetamine (Verified Allergy, Unknown, UNKNOWN, 11/22/16) Dextroamphetamine (Verified Allergy, Unknown, UNKNOWN, 11/22/16) NSAIDs (Verified Allergy, Unknown, CONTRINDICATED HX; GASTIRC BYPASS, 11/22) Prochlorperazine (Verified Allergy, Unknown, rapid heart rate, 11/22/16) Aspirin (Verified Adverse Reaction, Severe, GI BLEED, 11/22/16) Acetaminophen (Unverified Adverse Reaction, Unknown, GI ISSUES, 11/22/16) Physical Exam Vital Signs Date Time Temp Pulse Resp B/P (MAP) Pulse Ox O2 Delivery O2 Flow Rate FiO2 12/12/16 12:24 85 18 96/66 99 12/12/16 10:36 72 16 112/73 99 Room Air 12/12/16 09:08 36.7 88 18 99/76 99 Room Air Physical Exam GENERAL: Sitting up in bed, no acute distress, non-toxic, disheveled EYE EXAM: normal conjunctiva OROPHARYNX: no exudate, no erythema, lips, buccal mucosa, and tongue normal and mucous membranes are moist NECK: supple, no nuchal rigidity, no adenopathy, non-tender LUNGS: Clear to auscultation. Normal chest wall mechanics HEART: no murmurs, S1 normal and S2 normal ABDOMEN: abdomen soft, normo-active bowel sounds, no masses, no rebound or guarding. Three abdominal incisions present with overlying Dermabond. Minimal tenderness at the incision sites. BACK: Back is symmetrical on inspection and there is no deformity, no midline tenderness, no CVA tenderness. SKIN: no rashes and no bruising UPPER EXTREMITIES: upper extremities are grossly normal. LOWER EXTREMITIES: No pitting edema. NEURO EXAM: Normal sensorium, cranial nerves II-XII grossly intact, normal speech, no gross weakness of arms, no gross weakness of legs. Medical Decision & Procedures ER Provider Diagnostic Interpretation: CT:Per my review, radiologist interpretation. CT ABD/PELVIS IV AND ORAL CONT FINDINGS: Lower chest: The heart is normal in size and configuration, without pericardial effusion. The lung bases and pleural spaces are clear. Liver: There is borderline hepatic steatosis. No focal masses are visualized. There is minimal central ductal prominence similar to the prior study. Gallbladder: Surgically absent Spleen: Normal in size and attenuation. Pancreas: No pancreatic masses are visualized. There is mild dilatation of the pancreatic duct within the head of pancreas. The duct measures 4.3 mm. This remains similar to the preceding study. Adrenal glands: Unremarkable. Kidneys: There are small nonobstructing bilateral renal calculi. No solid renal masses are visualized. There is no hydronephrosis. Bowel: There are postsurgical changes of a gastric bypass and presumed Kylie-en-Y anastomosis. There are no transition zones indicate bowel obstruction. No extravasated contrast is visualized. Visualized portion of the appendix appear normal. There is no evidence of acute diverticulitis. Peritoneum: There is a small amount of free pelvic fluid. No free intraperitoneal air is visualized. Vasculature: The abdominal aorta is normal in course and caliber. Adenopathy: None. Pelvic viscera: The bladder, and pelvic viscera are unremarkable. Skeletal structures: No destructive osseous lesions are seen. IMPRESSION: 1. Postsurgical changes of a gastric bypass and Kylie-en-Y anastomosis 2. Mild pancreatic ductal dilatation, unchanged from the preceding study 3. No evidence of bowel obstruction. No evidence of free air 4. No evidence of acute appendicitis. No evidence of acute diverticulitis. 5. Small amount of free fluid in the pelvis 6. Nonobstructing bilateral renal calculi. Electronically signed by: Ayden Ramos M.D. Laboratory Results 12/12/16 09:55 Red Blood Count 4.40, Mean Corpuscular Volume 90.7, Mean Corpuscular Hemoglobin 28.4, Mean Corpuscular Hemoglobin Concent 31.3, Mean Platelet Volume 8.5, Neutrophils (%) (Auto) 57.1, Lymphocytes (%) (Auto) 34.7, Monocytes (%) (Auto) 5.3, Eosinophils (%) (Auto) 2.1, Basophils (%) (Auto) 0.8, Neutrophils # (Auto) 2.17, Lymphocytes # (Auto) 1.32, Monocytes # (Auto) 0.20, Eosinophils # (Auto) 0.08, Basophils # (Auto) 0.03 12/12/16 09:55 Test 12/12/16 00:00 12/12/16 09:55 Urine Color YELLOW Urine Appearance CLEAR (CLEAR) Urine pH 8.5 (4.5-7.5) Urine Specific [place] 1.014 (1.000-1.030) Urine Protein NEG (NEG) Urine Glucose (UA) NEG (NEG) Urine Ketones NEG (NEG) Urine Occult Blood NEG (NEG) Urine Nitrite NEG (NEG) Urine Bilirubin NEG (NEG) Urine Urobilinogen NEG (NEG) Urine Leukocyte Esterase NEG (NEG) Urine WBC (Auto) 0 /hpf (0-5) Urine RBC (Auto) 0-4 /hpf (0-4) Urine Hyaline Casts (Auto) 0 /lpf (0-5) Urine Epithelial Cells (Auto) 5-10 /lpf (0-5) Urine Bacteria (Auto) NEG (NEG) Urine Test NEG (NEG) White Blood Count 3.80 K/uL (4.8-10.8) Red Blood Count 4.40 M/uL (4.2-5.4) Hemoglobin 12.5 g/dL (12.0-16.0) Hematocrit 39.9 % (37-47) Mean Corpuscular Volume 90.7 fL (80-100) Mean Corpuscular Hemoglobin 28.4 pg (25-34) Mean Corpuscular Hemoglobin Concent 31.3 g/dl (32-36) Platelet Count 474 K/uL (130-400) Mean Platelet Volume 8.5 fL (7.4-10.4) Neutrophils (%) (Auto) 57.1 % Lymphocytes (%) (Auto) 34.7 % Monocytes (%) (Auto) 5.3 % Eosinophils (%) (Auto) 2.1 % Basophils (%) (Auto) 0.8 % Neutrophils # (Auto) 2.17 K/uL (1.4-6.5) Lymphocytes # (Auto) 1.32 K/uL (1.2-3.4) Monocytes # (Auto) 0.20 K/uL (0.11-0.59) Eosinophils # (Auto) 0.08 K/uL (0-0.5) Basophils # (Auto) 0.03 K/uL (0-0.2) RDW Standard Deviation 46.2 fL (36.4-46.3) RDW Coefficient of Variation 13.7 % (11.5-14.5) Immature Granulocyte % (Auto) 0.0 % Immature Granulocyte # (Auto) 0.00 K/uL (0.00-0.02) Anion Gap 8.0 mmol/L (3-11) Est Creatinine Clear Calc Drug Dose 82.2 ml/min Estimated GFR () 125.8 Estimated GFR (Non- 108.5 BUN/Creatinine Ratio 21.7 (10-20) Calcium Level 9.5 mg/dl (8.5-10.1) Total Bilirubin 0.4 mg/dl (0.2-1) Direct Bilirubin < 0.1 mg/dl (0-0.2) Aspartate Amino Transf (AST/SGOT) 12 U/L (15-37) Alanine Aminotransferase (ALT/SGPT) 20 U/L (12-78) Alkaline Phosphatase 91 U/L (45-117) Total Protein 8.3 gm/dl (6.4-8.2) Albumin 3.8 gm/dl (3.4-5.0) Lipase 163 U/L (73-393) Laboratory results per my review. Medications Administered Medications (Trade) Dose Ordered Sig/Kin Route Start Time Stop Time Status Last Admin Dose Admin Sodium Chloride 1,000 ml @ 999 mls/hr Q1H1M STAT IV 12/12/16 09:25 12/12/16 10:25 DC 12/12/16 10:05 999 MLS/HR Ondansetron HCl (Zofran Inj) 4 mg NOW STAT IV 12/12/16 09:25 12/12/16 09:27 DC 12/12/16 09:25 4 MG Al Hydroxide/Mg Hydroxide (Maalox Susp) 30 ml STK-MED ONCE .ROUTE 12/12/16 09:30 12/12/16 09:31 DC 12/12/16 09:32 30 ML Lidocaine HCl (Viscous Lidocaine 2% Soln) 20 ml STK-MED ONCE .ROUTE 12/12/16 09:30 12/12/16 09:31 DC 12/12/16 09:32 10 ML ED Course ED COURSE: Vital signs were reviewed and showed hypotensive The patients medical record was reviewed The above diagnostic studies were performed and reviewed. ED treatments and interventions as stated above. 0919: The patient was evaluated in room A12B. A complete history and physical examination was performed. 0925: Ordered GI Cocktail 24 mL PO, Zofran Inj 4 mg IV, Sodium Chloride 1000 ml @ 999 mls/hr IV. 1035: I reassessed the patient. She is trying to have a bowel movement. 1200: Ordered Famotidine 20 mg/Dextrose 102 mL @ 200 mL/hr IV. 1205: Upon reevaluation, the patient is resting comfortably. I discussed my findings with the patient and she understands and agrees with the treatment plan. Based on the patients age, coexisting illnesses, exam and lab findings the decision to treat as an outpatient was made. The patient remained stable while under my care. The patient appeared well at the time of discharge. Medical Decision Differential diagnoses includes but is not limited to gastritis, peptic ulcer disease, GERD, gallbladder disease, pancreatitis, small bowel obstruction, acute coronary syndrome, pericarditis, ischemic bowel, irritable bowel disease, irritable bowel syndrome, appendicitis, diverticulitis, malignancy, hernia, urinary tract infection, torsion, perforation, trauma, infectious. Patient is a 36-year-old female who presents to ER for an epigastric abdominal burning. She had a reversal of her gastric bypass 2 weeks ago and since then notes that her pain has only been present for the past 24-48 hours. Upon review of [facility]'s records she was there twice within the past 2 weeks for what appears to be the same pain. She was supposed to have an appointment with her surgeon today but was unable to get there. His that she was able to get a ride to [employer] from [facility]. I have seen this patient about a month ago for left AMA following refusal of narcotics. CBC along with BMP, LFTs, bilirubin and lipase was unremarkable. UA was negative along with . Unable to give stool sample. As she described her pain as a burning pain radiating up she was given GI cocktail with improvement and famotidine. She request narcotics but I explained to her that I would treat this without narcotics as I do not believe is treating her problem at this time. CT of the abdomen and pelvis was unremarkable. Patient was updated and discharged follow- up with her general surgeon. Discussed with Pt concerning signs and symptoms to watch out for. Pt was instructed to follow up with their PCP and discussed with the patient their option to return to the ED at anytime for persistent or worsening symptoms. The appropriate anticipatory guidance and out-patient management, including indications for return to the emergency department, were explained at length to the patient and understood. Impression Primary Impression: Abdominal pain Additional Impression: Diarrhea Scribe Attestation The scribe's documentation has been prepared under my direction and personally reviewed by me in its entirety. I confirm that the note above accurately reflects all work, treatment, procedures, and medical decision making performed by me. Departure Information Dispostion Home / Self-Care Referrals Dewey Costa PA-C (PCP) Forms Call Back Authorization, HOME CARE DOCUMENTATION FORM, IMPORTANT VISIT INFORMATION Patient Instructions Abdominal Pain - [facility], My [facility] Additional Instructions Please follow up with your primary care doctor with in the next 24 hours. Any worsening of your symptoms, please return to the ED immediately. This includes fevers greater than 100.4, persistent nausea vomiting, bloody stool, passing out , or any other concerning signs or symptoms from your standpoint. Please follow up with your surgeon as you have an appointment today. Please notify them that you have a negative CT of the abdomen and they can review these images. Problem Qualifiers Primary Impression: Abdominal pain Abdominal location: generalized Qualified Codes: R10.84 - Generalized abdominal pain Additional Impression: Diarrhea Diarrhea type: unspecified type Qualified Codes: R19.7 - Diarrhea, unspecified
== END 2016-12-12 12:25 | disposition home or self-care (01) ==
LOC: C.EDB 09:05 → C.EDA 12:25
DX: R10.84 Generalized abdominal pain (principal); R19.7 Diarrhea, unspecified; Z98.84 Bariatric surgery status; F90.9 Attention-deficit hyperactivity disorder, unspecified type; F41.9 Anxiety disorder, unspecified; F31.9 Bipolar disorder, unspecified; F32.9 Major depressive disorder, single episode, unspecified; M79.7 Fibromyalgia; F43.10 Post-traumatic stress disorder, unspecified; Z86.718 Personal history of other venous thrombosis and embolism

== ENCOUNTER 2017-08-14 16:56 | Emergency (ER) | payer OTHER ==
[~2017-08-14] VITALS: Ht 154.9 cm; Wt 63.4 kg
[~2017-08-14 16:56] MED LIST changes: -ACET-1256 PO; -FERR1TAB13 PO; -MRLP527 PO; -ONDA4TAB10 SL; -OXYC-57 PO
[2017-08-14 17:10] VITALS: TEMP 36.7; Ht 154.9 cm; Wt 63.4 kg
[2017-08-14] MEDS ORDERED: SODIUM CHLORIDE 0.9% 1000ML 1,000 ML IV STA (17:25)
[2017-08-14] MEDS ORDERED: ONDANSETRON INJ 2 MG/ML 2 ML VIAL IV STA (17:25)
[2017-08-14] MEDS ORDERED: ONDA8TAB6 PO (17:42)
[2017-08-14] MEDS ORDERED: RANI150T3 PO (17:42)
[2017-08-14] MEDS ORDERED: MULT-513 PO (17:42)
[2017-08-14] MEDS ORDERED: GABA-112 PO (17:42)
[2017-08-14 17:55] VITALS: O2SAT 100
[2017-08-14 17:55] LABS: BASO % 0.2 %; BASO ABS # 0.01 K/uL (0-0.2); EOS % 0.2 %; EOS ABS # 0.01 K/uL (0-0.5); HEMATOCRIT 40.4 % (37-47); HEMOGLOBIN 12.7 g/dL (12.0-16.0); IG# 0.01 K/uL (0.00-0.02); LYMPH % 36.3 %; LYMPH ABS # 1.97 K/uL (1.2-3.4); MEAN CELL VOLUME 94.4 fL (80-100); MEAN CORPUSCULAR HEMOGLOBIN 29.7 pg (25-34); MEAN CORPUSCULAR HGB CONC 31.4 g/dl (32-36); MEAN PLATELET VOLUME 9.7 fL (7.4-10.4); MONO % 7.2 %; MONO ABS # 0.39 K/uL (0.11-0.59); NEUT % 55.9 %; NEUT ABS # 3.03 K/uL (1.4-6.5); PLATELET COUNT 179 K/uL (130-400); RED CELL DISTRIBUTION WIDTH CV 14.4 % (11.5-14.5); WHITE BLOOD COUNT 5.42 K/uL (4.8-10.8)
--- NOTE | 2017-08-14 18:25 | DIAGNOSTIC IMAGING REPORT ---
CT SCAN OF THE BRAIN WITHOUT IV CONTRAST CLINICAL HISTORY: Headache. COMPARISON STUDY: CT of the brain dated 09/08/2010. TECHNIQUE: Unenhanced axial CT scan of the brain is performed from the vertex to the skull base. A dose lowering technique was utilized adhering to the principles of ALARA. CT DOSE: 537.48 mGy.cm FINDINGS: Brain parenchyma: The brain parenchyma is normal in appearance. There is no hemorrhage, mass effect, or evidence of acute territorial ischemia by CT criteria. Up-white matter is preserved. No extra-axial fluid collection is seen. Ventricles, sulci, cisterns: Normal in configuration. Intracranial vasculature: The visualized intracranial vasculature at the skull base is normal in appearance. Calvarium: Unremarkable. Sinuses and mastoids: The visualized paranasal sinuses are clear. The mastoid air cells are well pneumatized. Orbits: The bony orbits are grossly intact. IMPRESSION: No acute intracranial abnormality. Electronically signed by: David Soto M.D. 08/14/2017 6:24 PM Dictated Date/Time: 08/14/2017 6:23 PM
[2017-08-14 18:31] LABS: ALBUMIN 3.7 gm/dl (3.4-5.0); CALCIUM 8.8 mg/dl (8.5-10.1); CREATININE 0.81 mg/dl (0.60-1.20); TOTAL PROTEIN 7.3 gm/dl (6.4-8.2)
--- NOTE | 2017-08-14 18:43 | DIAGNOSTIC IMAGING REPORT ---
PA CHEST WITH ABDOMINAL SERIES CLINICAL HISTORY: Generalized abdominal pain. Cough. FINDINGS: A PA chest radiograph is compared to study dated 09/07/2015. The cardiomediastinal silhouette is unremarkable. The lungs and pleural spaces are clear. No pneumothorax is seen. The bony thorax is grossly intact. Supine and erect abdominal radiographs are correlated with abdominal CT dated 12/12/2016. Cholecystectomy clips are noted in the right upper quadrant. Suture material projects over the gastroesophageal junction, the left midabdomen, and the right lower quadrant. There is a nonobstructed abdominal bowel gas pattern. Moderate colonic fecal retention is observed. No evidence of intraperitoneal free air is seen. There are no abnormal abdominal calcifications. Small phleboliths are identified in the pelvis. The lumbosacral spine and bony pelvis appear intact. IMPRESSION: 1. No active disease in the chest. 2. Nonobstructed abdominal bowel gas pattern. Electronically signed by: David Soto M.D. 08/14/2017 6:42 PM Dictated Date/Time: 08/14/2017 6:41 PM
[2017-08-14] MEDS ORDERED: OSELTAMIVIR PHOSPHATE 75 MG CAP PO STA (19:15)
[2017-08-14 19:20] LABS: POTASSIUM 3.2 mmol/L (3.5-5.1)
[2017-08-14 19:27] LABS: AST/SGOT 11 U/L (15-37)
[2017-08-14 19:37] VITALS: BP 119/77; PULSE 81; O2SAT 100
--- NOTE | 2017-08-14 20:32 | EMERGENCY ROOM VISIT NOTE ---
History Report prepared by Peter: Margarito Scott Under the Supervision of: Dr. Juan De Luna M.D. First contact with patient: 17:16 Chief Complaint: FLU LIKE SX Stated Complaint: HEADACHES,THROAT,BODY ACHES,STOMACH PAIN, FATIGUE History of Present Illness The patient is a 37 year old female who presents to the Emergency Room with complaints of flu-like symptoms that began about 1 week ago. She has a past medical history of a cholecystectomy, a gastric bypass, a gastric bypass revision and a current hernia. Two weeks ago, the patient went to her PCP because she was not feeling completely herself. She was told she had a viral infection and it will go away on its own. 1 week ago, her symptoms worsened significantly and she went to [facility] who placed her on Amoxicillin. She was supposed to have a follow up with her doctor, but her symptoms persisted and the clinics were full, so she came here. She has been experiencing a headache, sore throat, nausea, diarrhea, generalized weakness, left sided flank pain, and left sided abdominal discomfort. She notes that she has been in contact with her niece who is currently influenza positive. Pt denies LOC, fevers, chills, diaphoresis, visual changes, neck pain, chest pain, breathing difficulties, vomiting, melena, hematochezia, urinary symptoms, numbness, weakness, lymphadenopathy, rash, or other complaints. 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 She is scheduled for a hernia and diastasis repair procedure on the 9th of this month, in 6 days. She notes that she has a history of UTI's and a yeast infection that was found recently. Source of History: patient Onset: about 1 week ago Position: other (global) Symptom Intensity: moderate Quality: other (Flu-like symptoms) Timing: worsening Associated Symptoms: + headache, + sorethroat, + abdominal pain (left sided) , + back pain (left flank pain), + weakness Review of Systems See HPI for pertinent positives and negatives. A total of ten systems were reviewed and were otherwise negative. Past Medical & Surgical Medical Problems: (1) Abdominal pain (2) (3) ADHD (attention deficit hyperactivity disorder) (4) Anxiety (5) Bipolar disorder (6) Deep vein blood clot of left lower extremity (7) Depression (8) Fibromyalgia (9) Gastritis (10) PTSD (post-traumatic stress disorder) Surgical Problems: (1) H/O gastric bypass (2) Hx of cholecystectomy (3) Hx of tonsillectomy Family History Patient reports no known family medical history. Social History Smoking Status: Never Smoker Alcohol Use: none Drug Use: none Marital Status: single, in relationship Housing Status: lives with significant other Occupation Status: unemployed Current/Historical Medications Scheduled Gabapentin (Neurontin), 100 MG PO TID Multivitamins/Minerals (Mvi With Minerals), 1 TAB PO DAILY Pantoprazole (Protonix), 40 MG PO DAILY Ranitidine Hcl (Zantac), 150 MG PO BID Scheduled PRN Ondansetron Hcl (Zofran), 8 MG PO PRN PRN for Nausea Allergies Coded Allergies: Morphine (Verified Allergy, Severe, SHORTNESS OF BREATH, 11/22/16) Hydroxyzine (Verified Allergy, Intermediate, Shortness of breath, chest pain, headache, 11/22/16) Amphetamine (Verified Allergy, Unknown, UNKNOWN, 11/22/16) Dextroamphetamine (Verified Allergy, Unknown, UNKNOWN, 11/22/16) NSAIDs (Verified Allergy, Unknown, CONTRINDICATED HX; GASTIRC BYPASS, 11/22) Prochlorperazine (Verified Allergy, Unknown, rapid heart rate, 11/22/16) Aspirin (Verified Adverse Reaction, Severe, GI BLEED, 11/22/16) Acetaminophen (Unverified Adverse Reaction, Unknown, GI ISSUES, 11/22/16) Physical Exam Vital Signs Date Time Temp Pulse Resp B/P (MAP) Pulse Ox O2 Delivery O2 Flow Rate FiO2 08/14/17 19:37 81 16 119/77 100 08/14/17 19:18 81 08/14/17 18:54 80 16 119/77 100 Room Air 08/14/17 17:55 100 Room Air 08/14/17 17:10 36.7 67 16 123/81 99 Room Air Physical Exam GENERAL: Awake, alert, uncomfortable-appearing, in no distress HENT: Normocephalic, atraumatic. Oropharynx unremarkable. EYES: Normal conjunctiva. Sclera non-icteric. NECK: Supple. No nuchal rigidity. FROM. No JVD. RESPIRATORY: Clear to auscultation. CARDIAC: Regular rate, normal rhythm. Extremities warm and well perfused. Pulses equal. ABDOMEN: Soft, non-distended. No tenderness to palpation. No rebound or guarding. No masses. RECTAL: Deferred. MUSCULOSKELETAL: Chest examination reveals no tenderness. The back is symmetrical on inspection without obvious abnormality. There is left CVA tenderness to palpation. No joint edema. LOWER EXTREMITIES: Calves are equal size bilaterally and non-tender. No edema. No discoloration. NEURO: Normal sensorium. No sensory or motor deficits noted. SKIN: No rash or jaundice noted. Medical Decision & Procedures ER Provider Diagnostic Interpretation: Radiology results as stated below per my review and radiologist interpretation: PA CHEST WITH ABDOMINAL SERIES CLINICAL HISTORY: Generalized abdominal pain. Cough. FINDINGS: A PA chest radiograph is compared to study dated 09/07/2015. The cardiomediastinal silhouette is unremarkable. The lungs and pleural spaces are clear. No pneumothorax is seen. The bony thorax is grossly intact. Supine and erect abdominal radiographs are correlated with abdominal CT dated 12/12/2016. Cholecystectomy clips are noted in the right upper quadrant. Suture material projects over the gastroesophageal junction, the left midabdomen, and the right lower quadrant. There is a nonobstructed abdominal bowel gas pattern. Moderate colonic fecal retention is observed. No evidence of intraperitoneal free air is seen. There are no abnormal abdominal calcifications. Small phleboliths are identified in the pelvis. The lumbosacral spine and bony pelvis appear intact. IMPRESSION: 1. No active disease in the chest. 2. Nonobstructed abdominal bowel gas pattern. Electronically signed by: David Soto M.D. 08/14/2017 6:42 PM Dictated Date/Time: 08/14/2017 6:[address] SCAN OF THE BRAIN WITHOUT IV CONTRAST CLINICAL HISTORY: Headache. COMPARISON STUDY: CT of the brain dated 09/08/2010. TECHNIQUE: Unenhanced axial CT scan of the brain is performed from the vertex to the skull base. A dose lowering technique was utilized adhering to the principles of ALARA. CT DOSE: 537.48 mGy.cm FINDINGS: Brain parenchyma: The brain parenchyma is normal in appearance. There is no hemorrhage, mass effect, or evidence of acute territorial ischemia by CT criteria. Up-white matter is preserved. No extra-axial fluid collection is seen. Ventricles, sulci, cisterns: Normal in configuration. Intracranial vasculature: The visualized intracranial vasculature at the skull base is normal in appearance. Calvarium: Unremarkable. Sinuses and mastoids: The visualized paranasal sinuses are clear. The mastoid air cells are well pneumatized. Orbits: The bony orbits are grossly intact. IMPRESSION: No acute intracranial abnormality. Electronically signed by: David Soto M.D. 08/14/2017 6:24 PM Dictated Date/Time: 08/14/2017 6:23 PM Laboratory Results 08/14/17 17:45 Red Blood Count 4.28, Mean Corpuscular Volume 94.4, Mean Corpuscular Hemoglobin 29.7, Mean Corpuscular Hemoglobin Concent 31.4, Mean Platelet Volume 9.7, Neutrophils (%) (Auto) 55.9, Lymphocytes (%) (Auto) 36.3, Monocytes (%) (Auto) 7.2, Eosinophils (%) (Auto) 0.2, Basophils (%) (Auto) 0.2, Neutrophils # (Auto) 3.03, Lymphocytes # (Auto) 1.97, Monocytes # (Auto) 0.39, Eosinophils # (Auto) 0.01, Basophils # (Auto) 0.01 08/14/17 17:45 08/14/17 18:45 Test 08/14/17 17:45 08/14/17 18:45 White Blood Count 5.42 K/uL (4.8-10.8) Red Blood Count 4.28 M/uL (4.2-5.4) Hemoglobin 12.7 g/dL (12.0-16.0) Hematocrit 40.4 % (37-47) Mean Corpuscular Volume 94.4 fL (80-100) Mean Corpuscular Hemoglobin 29.7 pg (25-34) Mean Corpuscular Hemoglobin Concent 31.4 g/dl (32-36) Platelet Count 179 K/uL (130-400) Mean Platelet Volume 9.7 fL (7.4-10.4) Neutrophils (%) (Auto) 55.9 % Lymphocytes (%) (Auto) 36.3 % Monocytes (%) (Auto) 7.2 % Eosinophils (%) (Auto) 0.2 % Basophils (%) (Auto) 0.2 % Neutrophils # (Auto) 3.03 K/uL (1.4-6.5) Lymphocytes # (Auto) 1.97 K/uL (1.2-3.4) Monocytes # (Auto) 0.39 K/uL (0.11-0.59) Eosinophils # (Auto) 0.01 K/uL (0-0.5) Basophils # (Auto) 0.01 K/uL (0-0.2) RDW Standard Deviation 49.0 fL (36.4-46.3) RDW Coefficient of Variation 14.4 % (11.5-14.5) Immature Granulocyte % (Auto) 0.2 % Immature Granulocyte # (Auto) 0.01 K/uL (0.00-0.02) Urine Color YELLOW Urine Appearance CLEAR (CLEAR) Urine pH 7.5 (4.5-7.5) Urine Specific Gate 1.008 (1.000-1.030) Urine Protein NEG (NEG) Urine Glucose (UA) NEG (NEG) Urine Ketones NEG (NEG) Urine Occult Blood NEG (NEG) Urine Nitrite NEG (NEG) Urine Bilirubin NEG (NEG) Urine Urobilinogen NEG (NEG) Urine Leukocyte Esterase NEG (NEG) Urine Test NEG (NEG) Anion Gap 6.0 mmol/L (3-11) Est Creatinine Clear Calc Drug Dose 81.9 ml/min Estimated GFR () 108.3 Estimated GFR (Non- 93.4 BUN/Creatinine Ratio 14.9 (10-20) Calcium Level 8.8 mg/dl (8.5-10.1) Total Bilirubin 0.2 mg/dl (0.2-1) Alanine Aminotransferase (ALT/SGPT) 20 U/L (12-78) Alkaline Phosphatase 40 U/L (45-117) Total Protein 7.3 gm/dl (6.4-8.2) Albumin 3.7 gm/dl (3.4-5.0) Lipase 100 U/L (73-393) Thyroid Stimulating Hormone (TSH) 0.439 uIu/ml (0.300-4.500) Magnesium Level 1.8 mg/dl (1.8-2.4) Direct Bilirubin < 0.1 mg/dl (0-0.2) Aspartate Amino Transf (AST/SGOT) 11 U/L (15-37) Laboratory results reviewed by me Medications Administered Medications (Trade) Dose Ordered Sig/Kin Route Start Time Stop Time Status Last Admin Dose Admin Sodium Chloride 1,000 ml @ 999 mls/hr Q1H1M STAT IV 08/14/17 17:25 08/14/17 18:25 DC 08/14/17 17:54 999 MLS/HR Ondansetron HCl (Zofran Inj) 4 mg NOW STAT IV 08/14/17 17:25 08/14/17 17:30 DC 08/14/17 17:54 4 MG ECG Indication: abdominal pain Rate (beats per minute): 74 Rhythm: normal sinus Findings: nonspecific-ST abn (more prominent in the anterior leads), no acute ischemic change, no ectopy Change: Patient's electrocardiogram was interpreted by me. ED Course 1715: The patient was evaluated in room A2. A complete history and physical exam was performed. 1724: Ordered Zofran Inj 4 mg IV, Sodium Chloride 1000 ml @ 999 mls/hr IV 1909: I offered the patient some Tamiflu because she said she was taking care of her niece who was tested positively for flu, and she agreed. 1914: Ordered Tamiflu Cap 75 mg PO 1926: The patient is now refusing the Tamiflu. 1934: I reevaluated the patient. Discussed results and discharge instructions: She verbalized understanding and agreement. The patient is ready for discharge. Medical Decision Prior records/ancillary studies reviewed and summarized above. Nursing notes reviewed and agree them. The patient's history was concerning for abdominal complaints as listed above. Differential diagnosis: Etiologies such as metabolic, infection, hypo/hyperglycemia, electrolyte abnormalities, cardiac sources, intracerebral event, toxicologic, neurologic, as well as others were entertained. Physical examination: As above. ER treatment provided: IV Lock IV hydration with normal saline and IV Zofran On reassessment the patient felt better. Diagnostics interpretation by me: ECG: Unremarkable as above. The labs revealed a normal CBC and chemistry panel. Unremarkable urinalysis. Imaging studies: CT and x-rays as above The patient has flex symptoms and has been caring for her niece who was just diagnosed with influenza A here in the emergency department. She is pending surgery next week. I did offer her Tamiflu and she initially accepted but then declined. She has a follow-up on Thursday with her primary physician. The patient had numerous complaints and had significant workup here. No significant abnormalities were found. I suspect that she has had the ongoing problems and may be coming down with the flu. Given the negative workup outpatient follow-up was felt to be appropriate. Return instructions were outlined. If she worsens she will be back. By the evaluation outlined above emergent etiologies such as infection, other abnormalities, cardiac sources, intracerebral event, toxicologic, neurologic, abnormalities blood glucose, metabolic, as well as others were deemed relatively unlikely. The patient was informed about the findings as listed above. All questions were answered and she was pleased with the treatment. Return instructions were outlined and the patient was discharged in stable condition. Outpatient prescription management: None Referral: The patient was referred back to her primary care physician for follow-up in 2 to 3 days for a recheck of the current condition. Medication Reconcilliation Current Medication List: was personally reviewed by me Blood Pressure Screening Patient's blood pressure: Normal blood pressure Blood pressure disposition: Did not require urgent referral Impression Primary Impression: Influenza-like symptoms Scribe Attestation The scribe's documentation has been prepared under my direction and personally reviewed by me in its entirety. I confirm that the note above accurately reflects all work, treatment, procedures, and medical decision making performed by me. Departure Information Dispostion Home / Self-Care Referrals No Doctor, Assigned (PCP) Forms HOME CARE DOCUMENTATION FORM, IMPORTANT VISIT INFORMATION, Work Instructions Patient Instructions My [facility] Additional Instructions Continue current medications. Follow-up with your primary clinic on Thursday. Rest and drink plenty of fluids. Return to the ER for worsening flu symptoms, abdominal pains, urinary symptoms, Chest pain, difficulty breathing, fevers, vomiting, worsening of your condition , or as needed.
== END 2017-08-14 19:38 | disposition home or self-care (01) ==
LOC: C.EDB 16:58 → C.EDA 19:38
DX: R07.0 Pain in throat (principal); R11.0 Nausea; R19.7 Diarrhea, unspecified; R53.83 Other fatigue; R10.9 Unspecified abdominal pain; Z90.49 Acquired absence of other specified parts of digestive tract; Z98.84 Bariatric surgery status; Z88.6 Allergy status to analgesic agent; Z88.8 Allergy status to other drugs, medicaments and biological substances